=== PATIENT | male | born 1950 | race Hispanic/Latino ===

== ENCOUNTER 2021-05-29 10:28 | Emergency (ER) | payer OTHER ==
[~2021-05-29] VITALS: Ht 160 cm; Wt 92.5 kg
[2021-05-29 13:25] LABS: BASOPHILS % (AUTO) 0.5 % (0.0-5.0); HEMATOCRIT 34.8 % (42-54); LYMPHOCYTES % (AUTO) 32.9 % (21.0-51.0); MEAN CORPUSCULAR HEMOGLOBIN 28.6 pg (27.0-33.0); MEAN CORPUSCULAR HGB CONC 32.8 g/dL (32.0-36.0); MEAN CORPUSCULAR VOLUME 87.4 fL (79-99); MONOCYTES % (AUTO) 7.4 % (3.0-13.0); NEUTROPHILS % (AUTO) 57.9 % (40.0-77.0); PLATELET COUNT (AUTO) 264 K/uL (130-400); RED BLOOD CELL COUNT(AUTO) 3.98 MIL/uL (4.50-6.20); RED CELL DISTRIBUTION WIDTH 13.2 % (11.0-15.5); WHITE BLOOD COUNT (AUTO) 10.9 K/uL (4.8-10.8)
[2021-05-29 13:35] LABS: INR 1.08 (0.85-1.15); PROTHROMBIN TIME 11.7 SEC (9.6-11.6)
[2021-05-29 13:36] LABS: PARTIAL THROMBOPLASTIN TIME 28.3 SEC (26.3-35.5)
[2021-05-29 13:45] VITALS: BP 144/73
== END 2021-05-29 14:18 | disposition home or self-care (01) ==
LOC: EDH 10:28
DX: S00.512A Abrasion of oral cavity, initial encounter (principal); K08.89 Other specified disorders of teeth and supporting structures; E11.9 Type 2 diabetes mellitus without complications; I10 Essential (primary) hypertension; E66.9 Obesity, unspecified; Z79.01 Long term (current) use of anticoagulants; Z68.36 Body mass index [BMI] 36.0-36.9, adult; X58.XXXA Exposure to other specified factors, initial encounter; Y93.89 Activity, other specified; Y92.89 Other specified places as the place of occurrence of the external cause; Y99.8 Other external cause status
CPT/HCPCS: 36415; 85025; 85610; 85730

== ENCOUNTER 2021-10-19 22:32 | Emergency (ER) | payer OTHER ==
[2021-10-19 23:33] VITALS: BP 151/76
== END 2021-10-19 23:48 | disposition home or self-care (01) ==
LOC: EDH 22:32
DX: K08.89 Other specified disorders of teeth and supporting structures (principal); I10 Essential (primary) hypertension; E11.9 Type 2 diabetes mellitus without complications
CPT/HCPCS: 99281

== ENCOUNTER 2021-10-29 21:15 | Emergency (ER) | payer OTHER, MEDICARE ==
[~2021-10-29] VITALS: Ht 162.6 cm; Wt 92.5 kg
[2021-10-29 21:42] LABS: BASOPHILS % (AUTO) 0.4 % (0.0-5.0); EOSINOPHILS % (AUTO) 1.1 % (0.0-8.0); HEMATOCRIT 37.4 % (42-54); LYMPHOCYTES % (AUTO) 40.2 % (21.0-51.0); MEAN CORPUSCULAR HEMOGLOBIN 27.8 pg (27.0-33.0); MEAN CORPUSCULAR HGB CONC 33.2 g/dL (32.0-36.0); MEAN CORPUSCULAR VOLUME 83.9 fL (79-99); MONOCYTES % (AUTO) 10.3 % (3.0-13.0); NEUTROPHILS % (AUTO) 47.8 % (40.0-77.0); PLATELET COUNT (AUTO) 268 K/uL (130-400); RED BLOOD CELL COUNT(AUTO) 4.46 MIL/uL (4.50-6.20); RED CELL DISTRIBUTION WIDTH 15.1 % (11.0-15.5); WHITE BLOOD COUNT (AUTO) 11.3 K/uL (4.8-10.8)
[2021-10-29 21:43] LABS: APPEARANCE,URINE Clear (CLEAR); BILIRUBIN,URINE Negative (NEGATIVE); COLOR,URINE Yellow (YELLOW); GLUCOSE, URINE (UA) Negative (NEGATIVE); KETONES,URINE Negative (NEGATIVE); LEUKOCYTE ESTERASE ,URINE Negative (NEGATIVE); NITRATE,URINE Negative (NEGATIVE); OCCULT BLOOD,URINE Negative (NEGATIVE); PH,URINE 7.5 (5.0-8.0); PROTEIN,URINE Negative (NEGATIVE)
[2021-10-29 21:50] LABS: POTASSIUM 3.7 mmol/L (3.5-5.1)
[2021-10-29 21:57] LABS: ALBUMIN 3.9 g/dL (3.5-5.0); BILIRUBIN,TOTAL 0.5 mg/dL (0.2-1.0); TOTAL PROTEIN, SERUM 8.1 g/dL (6.0-8.3)
[2021-10-29] MEDS ORDERED: 0.9%NACL 1000ML 1,000 ML IV ONE (22:00)
[2021-10-29] MEDS ORDERED: IOHEXOL-350 75 ML VIAL IV ONE (22:08)
[2021-10-29] MEDS ORDERED: ONDANSETRON 4MG INJ IVP ONE (23:30)
[2021-10-29] MEDS ORDERED: KETOROLAC 15MG/ML VIAL (15MG/ML) IV ONE (23:30)
[2021-10-29] MEDS ORDERED: PANTOPRAZOLE 40 MG/VIAL IVP ONE (23:30)
[2021-10-29] MEDS ORDERED: METOCLOPRAMIDE 10 MG/2 ML VIAL IVP ONE (23:30)
[2021-10-29] MEDS ORDERED: FAMOTIDINE 20MG VIAL IV ONE ×2 (23:30→23:42)
[2021-10-29] MEDS ORDERED: PANTOPRAZOLE 40 MG/VIAL ONE (23:41)
[2021-10-29] MEDS ORDERED: METOCLOPRAMIDE 10 MG/2 ML VIAL ONE (23:41)
[2021-10-29] MEDS ORDERED: ONDANSETRON 4MG INJ ONE (23:41)
[2021-10-29] MEDS ORDERED: KETOROLAC 15MG/ML VIAL (15MG/ML) ONE (23:42)
[2021-10-30] MEDS ORDERED: ONDA4TAB10 PO (00:18)
[2021-10-30] MEDS ORDERED: PANT40TA PO (00:18)
[2021-10-30] MEDS ORDERED: DICY20TA2 PO (00:18)
[2021-10-30] MEDS ORDERED: METO-296 PO (00:18)
[2021-10-30 00:56] VITALS: BP 133/62
== END 2021-10-30 01:10 | disposition home or self-care (01) ==
LOC: EDH 21:15
DX: K80.20 Calculus of gallbladder without cholecystitis without obstruction (principal); E86.9 Volume depletion, unspecified; R10.9 Unspecified abdominal pain; E11.9 Type 2 diabetes mellitus without complications; I10 Essential (primary) hypertension; Z98.890 Other specified postprocedural states; Z79.899 Other long term (current) drug therapy
CPT/HCPCS: 36415; 71045; 74177; 80053; 81003; 83690; 84484; 85025; 93005; 96361; 96374; 96375; 99285; C9113; J1885; J2405; J2765; J3490; J7030; Q9967

== ENCOUNTER 2022-06-06 23:59 | Emergency (ER) | payer OTHER, MEDICARE ==
[~2022-06-06] VITALS: Ht 165.1 cm; Wt 92.1 kg
[~2022-06-06 23:59] MED LIST: DICY20TA2 PO; METO-296 PO; ONDA4TAB10 PO; PANT40TA PO
[2022-06-07 00:15] VITALS: BP 167/69
[2022-06-07] MEDS ORDERED: ORPHENADRINE CITRATE 30 MG/ML ML IM ONE (01:00)
[2022-06-07] MEDS ORDERED: KETOROLAC 15MG/ML VIAL (15MG/ML) IM ONE (01:00)
[2022-06-07] MEDS ORDERED: TIZA4CAP8 PO (01:21)
== END 2022-06-07 01:56 | disposition home or self-care (01) ==
LOC: EDH 23:59
DX: M54.2 Cervicalgia (principal); E11.9 Type 2 diabetes mellitus without complications; E78.00 Pure hypercholesterolemia, unspecified; I10 Essential (primary) hypertension; Z79.1 Long term (current) use of non-steroidal anti-inflammatories (NSAID); Z95.1 Presence of aortocoronary bypass graft; E66.9 Obesity, unspecified; Z68.33 Body mass index [BMI] 33.0-33.9, adult
CPT/HCPCS: 99284; 96372 ×2; J1885; J2360

== ENCOUNTER 2022-06-14 14:05 | Emergency (ER) | payer OTHER, MEDICARE ==
[~2022-06-14] VITALS: Ht 165.1 cm; Wt 93.0 kg
[~2022-06-14 14:05] MED LIST changes: +TIZA4CAP8 PO
[2022-06-14] MEDS ORDERED: DIAZEPAM 5 MG TABLET PO ONE (15:00)
[2022-06-14] MEDS ORDERED: KETOROLAC 30MG VIAL (30MG/ML) IM ONE (15:00)
[2022-06-14] MEDS ORDERED: DIAZ5TAB PO (15:05)
[2022-06-14] MEDS ORDERED: NAPR-1180 PO (15:05)
[2022-06-14 15:33] VITALS: BP 146/72
== END 2022-06-14 15:33 | disposition home or self-care (01) ==
LOC: EDH 14:05
DX: M43.6 Torticollis (principal); E11.9 Type 2 diabetes mellitus without complications; E78.00 Pure hypercholesterolemia, unspecified; I10 Essential (primary) hypertension; Z98.890 Other specified postprocedural states; Z79.899 Other long term (current) drug therapy
CPT/HCPCS: 99283; 96372; J1885